=== PATIENT | female | born 1990 | race Caucasian/White ===

== ENCOUNTER 2021-07-28 22:15 | Emergency (ER) | payer MEDICAID ==
[~2021-07-28] VITALS: Ht 157.5 cm; Wt 72.2 kg
[~2021-07-28 22:15] MED LIST: CYCL-1 PO; LORA1TAB PO
[2021-07-28 22:29] VITALS: BP 116/80
[2021-07-28] MEDS ORDERED: CefTRIAXone 1000mg IM Kit (w/lidocaine diluent) IM ONE (23:25)
[2021-07-28] MEDS ORDERED: ibuprofen tablet 400 MG TABLET PO ONE (23:25)
[2021-07-28] MEDS ORDERED: DOXY100T67 PO ×3 (23:32→23:47)
[2021-07-28] MEDS ORDERED: CEPH500C2 PO ×3 (23:32→23:47)
== END 2021-07-28 23:58 | disposition home or self-care (01) ==
LOC: ER 22:16
DX: L03.115 Cellulitis of right lower limb (principal); G43.909 Migraine, unspecified, not intractable, without status migrainosus; G89.29 Other chronic pain; F12.90 Cannabis use, unspecified, uncomplicated; Z56.0 Unemployment, unspecified
CPT/HCPCS: 96372; 99283; J0696

== ENCOUNTER 2023-08-20 18:03 | Emergency (ER) | payer MEDICAID ==
[~2023-08-20] VITALS: Ht 157.5 cm; Wt 86.0 kg
[~2023-08-20 18:03] MED LIST changes: +CEPH500C2 PO; +DOXY100T67 PO
[2023-08-20 18:04] VITALS: TEMP 99.4
[2023-08-20 18:51] LABS: URINE HCG NEGATIVE (NEG)
[2023-08-20 18:56] LABS: BILIRUBIN,URINE NEGATIVE (Neg); CLARITY,URINE CLOUDY (Clear); COLOR,URINE YELLOW (Yellow); GLUCOSE, URINE NEGATIVE (Neg); KETONES,URINE NEGATIVE (Neg); LEUKOCYTE ESTERASE ,URINE NEGATIVE (Neg); NITRITES, URINE NEGATIVE (Neg); OCCULT BLOOD,URINE NEGATIVE (Neg); PROTEIN,URINE NEGATIVE (Neg); UROBILINOGEN,URINE 0.2 E.U/dL (0.2-1.0)
[2023-08-20 19:04] LABS: SQUAMOUS EPITHELIAL CELL,UR MANY /LPF (FEW); UA COLLECTION TYPE CLN CATCH MIDSTREAM
[2023-08-20 19:05] LABS: HYALINE CASTS 0-3 /LPF (NEGATIVE); MUCUS STRANDS FEW /LPF (Neg)
[2023-08-20 19:07] LABS: BACTERIA,URINE FEW /HPF (Neg)
[2023-08-20 19:08] LABS: AMORPHOUS URATES 1+; CAL OXALATE CRYSTALS FEW /HPF (NEGATIVE); WBC,URINE 0-4 /HPF (0-4)
[2023-08-20 21:01] LABS: BASOPHILS % (AUTO) 0.1 % (0-1); EOSINOPHILS % (AUTO) 0.3 % (0-6); HEMATOCRIT 44.9 % (35.0-45.0); LYMPHOCYTES # (AUTO) 0.4 X10'3 (1.1-4.8); LYMPHOCYTES % (AUTO) 2.9 % (21-51); MEAN CORPUSCULAR HEMOGLOBIN 28.7 PG (27.0-31.0); MEAN CORPUSCULAR HGB CONC 33.5 g/dL (33.0-36.5); MEAN CORPUSCULAR VOLUME 85.6 FL (78-98); MEAN PLATELET VOLUME 8.7 FL (7.4-10.4); MONOCYTES # (AUTO) 0.7 X10'3 (0-0.9); MONOCYTES % (AUTO) 4.9 % (2-12); NEUTROPHILS # (AUTO) 13.2 X10'3 (1.8-7.7); NEUTROPHILS % (AUTO) 91.8 % (42-75); PLATELET COUNT 215 X10'3 (140-440); RED BLOOD COUNT 5.24 X10'6 (4.20-5.60); RED CELL DISTRIBUTION WIDTH 13.8 % (11.5-14.5); WHITE BLOOD COUNT 14.4 X10'3 (4.5-11.0)
[2023-08-20 21:21] LABS: ALANINE AMINOTRANSFERASE 38 U/L (12-78); ALBUMIN 4.3 G/DL (3.4-5.0); ALKALINE PHOSPHATASE 85 IU/L (46-116); ANION GAP 11 (8-16); ASPARTATE AMINO TRANSFERASE 23 U/L (10-37); BILIRUBIN,TOTAL 0.6 MG/DL (0.1-1.0); BLOOD UREA NITROGEN 16 MG/DL (7-18); BUN/CREATININE RATIO 17.4 (10.0-20.0); CALCIUM 9.3 MG/DL (8.5-10.1); CHLORIDE 106 MMOL/L (99-107); CREATININE 0.92 MG/DL (0.40-0.90); GLUCOSE 107 MG/DL (70-104); POTASSIUM 3.9 MMOL/L (3.5-5.1); SODIUM 141 MMOL/L (135-145); TOTAL CARBON DIOXIDE 24.1 MMOL/L (24-32); TOTAL PROTEIN 8.4 G/DL (6.4-8.2); eCRCL 69 ML/MIN; eGFR 70 ML/MIN
[2023-08-20 21:22] LABS: LIPASE 36 U/L (16-77)
[2023-08-20 21:38] LABS: BILIRUBIN,DIRECT 0.2 MG/DL (0-0.3)
[2023-08-20] MEDS ORDERED: ketorolac trometh inj. 60 MG/2 ML VIAL IM ONE (23:10)
[2023-08-20] MEDS ORDERED: ondansetron 4mg rapidly disintigrating tab PO ONE (23:10)
[2023-08-20 23:31] VITALS: BP 132/79; PULSE 113; RESP 18; O2SAT 99
== END 2023-08-20 23:51 | disposition home or self-care (01) ==
LOC: ER 18:03
DX: R10.11 Right upper quadrant pain (principal); R19.7 Diarrhea, unspecified; M54.9 Dorsalgia, unspecified; R11.2 Nausea with vomiting, unspecified; F41.9 Anxiety disorder, unspecified; F32.A Depression, unspecified; F12.90 Cannabis use, unspecified, uncomplicated
CPT/HCPCS: 36415; 74176; 76700; 80048; 80076; 81001; 81025; 83690; 85025; 96372; 99285; J1885

== ENCOUNTER 2025-06-17 12:14 | Emergency (ER) | payer MEDICAID ==
[~2025-06-17] VITALS: Ht 157.5 cm; Wt 87.0 kg
[2025-06-17 12:40] VITALS: BP 142/94; PULSE 83; RESP 16; O2SAT 100
[2025-06-17] MEDS ORDERED: SILV50CR31 TOP (13:37)
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
[2025-06-17 13:49] VITALS: TEMP 97.6
== END 2025-06-17 13:54 | disposition home or self-care (01) ==
LOC: ER 12:15
DX: T23.201A Burn of second degree of right hand, unspecified site, initial encounter (principal); F31.9 Bipolar disorder, unspecified; T31.0 Burns involving less than 10% of body surface; F41.9 Anxiety disorder, unspecified; G43.909 Migraine, unspecified, not intractable, without status migrainosus; Z88.8 Allergy status to other drugs, medicaments and biological substances; W19.XXXA Unspecified fall, initial encounter; Y93.89 Activity, other specified; Y92.89 Other specified places as the place of occurrence of the external cause; Y99.8 Other external cause status
CPT/HCPCS: 16020; 99282; 99283; A6258; A6449

== ENCOUNTER 2025-06-25 15:25 | Emergency (ER) | payer MEDICAID ==
[~2025-06-25] VITALS: Ht 157.5 cm; Wt 88.1 kg
[~2025-06-25 15:25] MED LIST changes: +SILV50CR31 TOP
[2025-06-25 15:30] VITALS: TEMP 98.5
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
[2025-06-25] MEDS ORDERED: SILV20CR13 TOP (16:00)
[2025-06-25] MEDS ORDERED: CEPH-585 PO (16:00)
[2025-06-25 17:14] VITALS: BP 129/93; PULSE 65; RESP 18; O2SAT 98
== END 2025-06-25 17:15 | disposition home or self-care (01) ==
LOC: ER 15:26
DX: L03.113 Cellulitis of right upper limb (principal); F31.9 Bipolar disorder, unspecified; F12.90 Cannabis use, unspecified, uncomplicated; Z88.8 Allergy status to other drugs, medicaments and biological substances; Z87.19 Personal history of other diseases of the digestive system
CPT/HCPCS: 99283; A6449